=== PATIENT | female | born 1930 | race Caucasian/White ===

== ENCOUNTER 2016-07-05 16:42 | Inpatient (IN) | payer MEDICARE, OTHER ==
[~2016-07-05] VITALS: Ht 165.1 cm; Wt 56.5 kg
[2016-07-05] MEDS ORDERED: SODIUM CHLORIDE 0.9% 1,000 ML ONE (20:44)
[2016-07-05] MEDS ORDERED: SALINE FLUSH 10 ML FLUSH PRN (21:25)
[2016-07-05] MEDS ORDERED: BISACODYL EC 5 MG TAB PO PRN (21:25)
[2016-07-05] MEDS ORDERED: MAG HYDROX 30 ML UDC PO PRN (21:25)
[2016-07-05] MEDS ORDERED: BISACODYL 10 MG SUPP RECTAL PRN (21:25)
[2016-07-05] MEDS ORDERED: ONDANSETRON 4 MG VIAL IV PRN (21:25)
[2016-07-05] MEDS ORDERED: ALU/MAG/SIM 30 ML UDC PO PRN (21:25)
[2016-07-05 22:27] VITALS: BP_SYST 100; BP_SYST 110; TEMP 96.7
[2016-07-05] MEDS ORDERED: Flu Vaccine Quadrivalent 60 MCG/0.5 ML IM.VACC ONE (22:30)
[2016-07-05] MEDS: SODIUM CHLORIDE 0.9% 1,000 ML IV SCH (23:13)
[2016-07-05] MEDS: GABAPENTIN 100 MG CAP PO SCH (23:56)
[2016-07-05] MEDS: METOPROLOL TART 25 MG TAB PO SCH (23:56)
[2016-07-06] VITALS (7 sets, daily range): BP systolic 100–122; RESP 16–18; TEMP 97.3–98.3; Ht 165.1 cm; Wt 56.5 kg
[2016-07-06] MEDS: SODIUM CHLORIDE 0.9% FLUSH BAG 500 ML IV SCH (00:12)
[2016-07-06] MEDS: SALINE FLUSH 10 ML FLUSH SCH ×2 (07:41→20:00)
[2016-07-06] MEDS: METOPROLOL TART 25 MG TAB PO SCH (07:53)
[2016-07-06] MEDS: ASPIRIN EC 81 MG TAB PO SCH (07:53)
[2016-07-06] MEDS: GABAPENTIN 100 MG CAP PO SCH ×3 (07:53→21:48)
[2016-07-06] MEDS ORDERED: FEBUXOSTAT 40 MG TAB PO SCH (09:00)
[2016-07-06] MEDS: SODIUM CHLORIDE 0.9% 1,000 ML IV SCH (11:07)
[2016-07-06] MEDS ORDERED: CETIRIZINE 10 MG TAB PO SCH (17:00)
[2016-07-06] MEDS ORDERED: PRAVASTATIN 40 MG TAB PO SCH (18:25)
[2016-07-06] MEDS ORDERED: NON-FORMULARY MEDICATION (Melatonin 3 MG) PO SCH (21:00)
[2016-07-06] MEDS: SERTRALINE 50 MG TAB PO SCH (21:44)
[2016-07-06] MEDS: KCL CR 10 MEQ TAB PO SCH (21:48)
[2016-07-06] MEDS ORDERED: MISSING DOSE XX ONE (22:10)
[2016-07-06] MEDS: PRAVASTATIN 40 MG TAB PO SCH (23:00)
[2016-07-07] VITALS (7 sets, daily range): BP systolic 118–164; RESP 16–18; TEMP 96.3–98.6
[2016-07-07] MEDS: SODIUM CHLORIDE 0.9% FLUSH BAG 500 ML IV SCH (06:00)
[2016-07-07] MEDS: SALINE FLUSH 10 ML FLUSH SCH ×2 (08:00→23:12)
[2016-07-07] MEDS: ASPIRIN EC 81 MG TAB PO SCH (09:17)
[2016-07-07] MEDS: CHOLECALCIFEROL 1,000 UNITS TAB PO SCH (09:17)
[2016-07-07] MEDS: GABAPENTIN 100 MG CAP PO SCH ×3 (09:17→23:14)
[2016-07-07] MEDS: KCL CR 10 MEQ TAB PO SCH ×2 (09:17→21:00)
[2016-07-07] MEDS: SERTRALINE 50 MG TAB PO SCH (09:18)
[2016-07-07] MEDS: SODIUM CHLORIDE 0.9% 1,000 ML IV SCH (09:23)
[2016-07-07] MEDS ORDERED: MISSING DOSE XX ONE (16:40)
[2016-07-07] MEDS: VALACYCLOVIR 500 MG TAB PO SCH ×2 (17:26→23:13)
[2016-07-07] MEDS: PRAVASTATIN 40 MG TAB PO SCH (23:24)
[2016-07-08 05:28] VITALS: BP_SYST 116; RESP 18; TEMP 97.9
[2016-07-08] MEDS: SODIUM CHLORIDE 0.9% FLUSH BAG 500 ML IV SCH (06:34)
[2016-07-08] MEDS: SALINE FLUSH 10 ML FLUSH SCH ×2 (08:00→20:00)
[2016-07-08] MEDS ORDERED: MISSING DOSE XX ONE (08:00)
[2016-07-08 08:16] VITALS: BP_SYST 146; RESP 18; TEMP 97.9
[2016-07-08] MEDS: ASPIRIN EC 81 MG TAB PO SCH (09:19)
[2016-07-08] MEDS: CHOLECALCIFEROL 1,000 UNITS TAB PO SCH (09:20)
[2016-07-08] MEDS: KCL CR 10 MEQ TAB PO SCH ×2 (09:21→20:46)
[2016-07-08] MEDS: SERTRALINE 50 MG TAB PO SCH (09:21)
[2016-07-08] MEDS: GABAPENTIN 100 MG CAP PO SCH ×3 (09:21→20:46)
[2016-07-08] MEDS: VALACYCLOVIR 500 MG TAB PO SCH ×3 (09:21→20:46)
[2016-07-08 11:00] VITALS: BP_SYST 122; RESP 18; TEMP 97.7
[2016-07-08] MEDS: DOCUSATE SOD 100 MG CAP PO SCH ×2 (11:20→20:45)
[2016-07-08 17:19] VITALS: BP_SYST 102; RESP 18; TEMP 97.3
[2016-07-08 19:20] VITALS: BP_SYST 122; RESP 19; TEMP 98.4
[2016-07-08] MEDS: EZETIMIBE 10 MG TAB PO SCH (20:47)
[2016-07-08 23:59] VITALS: BP_SYST 120; RESP 18
[2016-07-09 03:30] VITALS: BP_SYST 128; RESP 18; TEMP 98.5
[2016-07-09] MEDS: SODIUM CHLORIDE 0.9% FLUSH BAG 500 ML IV SCH ×2 (05:41→21:28)
[2016-07-09 07:52] VITALS: BP_SYST 122; RESP 18; TEMP 98.7
[2016-07-09] MEDS: SALINE FLUSH 10 ML FLUSH SCH ×2 (08:00→20:00)
[2016-07-09] MEDS: CHOLECALCIFEROL 1,000 UNITS TAB PO SCH (08:26)
[2016-07-09] MEDS: ASPIRIN EC 81 MG TAB PO SCH (08:26)
[2016-07-09] MEDS: DOCUSATE SOD 100 MG CAP PO SCH (08:26)
[2016-07-09] MEDS: KCL CR 10 MEQ TAB PO SCH ×2 (08:26→21:21)
[2016-07-09] MEDS: VALACYCLOVIR 500 MG TAB PO SCH ×3 (08:27→21:21)
[2016-07-09] MEDS: GABAPENTIN 100 MG CAP PO SCH ×3 (09:00→21:21)
[2016-07-09] MEDS ORDERED: MISSING DOSE XX ONE (09:40)
[2016-07-09] MEDS: SERTRALINE 50 MG TAB PO SCH (10:08)
[2016-07-09 12:54] VITALS: BP_SYST 128; RESP 18; TEMP 98.8
[2016-07-09 17:32] VITALS: BP_SYST 120; RESP 18
[2016-07-09 20:53] VITALS: BP_SYST 118; RESP 18; TEMP 98.5
[2016-07-09] MEDS: EZETIMIBE 10 MG TAB PO SCH (21:21)
[2016-07-09 23:57] VITALS: BP_SYST 120; RESP 18; TEMP 98.5
[2016-07-10 03:30] VITALS: BP_SYST 118; RESP 18; TEMP 98.7
[2016-07-10 08:35] VITALS: BP_SYST 124; RESP 20; TEMP 98.5
[2016-07-10] MEDS: ASPIRIN EC 81 MG TAB PO SCH (09:21)
[2016-07-10] MEDS: SALINE FLUSH 10 ML FLUSH SCH ×2 (09:21→20:00)
[2016-07-10] MEDS: GABAPENTIN 100 MG CAP PO SCH ×3 (09:21→21:11)
[2016-07-10] MEDS: CHOLECALCIFEROL 1,000 UNITS TAB PO SCH (09:22)
[2016-07-10] MEDS: SERTRALINE 50 MG TAB PO SCH (09:22)
[2016-07-10] MEDS: KCL CR 10 MEQ TAB PO SCH ×2 (09:22→21:12)
[2016-07-10] MEDS: VALACYCLOVIR 500 MG TAB PO SCH ×3 (09:22→21:12)
[2016-07-10] MEDS: CEPHALEXIN 500 MG CAP PO SCH ×2 (09:22→21:12)
[2016-07-10 12:09] VITALS: BP_SYST 132; RESP 18; TEMP 97.8
[2016-07-10 16:23] VITALS: BP_SYST 136; RESP 18
[2016-07-10 19:55] VITALS: BP_SYST 130; RESP 16; TEMP 97.8
[2016-07-10] MEDS: EZETIMIBE 10 MG TAB PO SCH (21:11)
[2016-07-11 00:14] VITALS: BP_SYST 126; RESP 16
[2016-07-11 02:41] VITALS: BP_SYST 130; TEMP 97.3
[2016-07-11] MEDS: SODIUM CHLORIDE 0.9% FLUSH BAG 500 ML IV SCH (05:11)
[2016-07-11] MEDS: SALINE FLUSH 10 ML FLUSH SCH (08:00)
[2016-07-11] MEDS: CEPHALEXIN 500 MG CAP PO SCH (08:54)
[2016-07-11] MEDS: GABAPENTIN 100 MG CAP PO SCH (08:55)
[2016-07-11] MEDS: VALACYCLOVIR 500 MG TAB PO SCH (08:55)
[2016-07-11] MEDS: ASPIRIN EC 81 MG TAB PO SCH (08:55)
[2016-07-11] MEDS: SERTRALINE 50 MG TAB PO SCH (08:55)
[2016-07-11] MEDS: CHOLECALCIFEROL 1,000 UNITS TAB PO SCH (08:55)
[2016-07-11] MEDS: KCL CR 10 MEQ TAB PO SCH (08:55)
[2016-07-11 09:44] VITALS: BP_SYST 124; RESP 18; TEMP 97.8
[2016-07-11 10:38] VITALS: BP_SYST 124; RESP 18; TEMP 97.8
== END 2016-07-11 13:38 | disposition home health service (06) | DRG 596 ==
LOC: ENRESERVTM → ENRESERVDT → ER 16:42 → EMR 19:37 → 4THE 22:01 → OBSVTOIN 07-06 12:36 → ENPENDDIS 07-06 12:36 → PCU2 07-06 15:40
PROVIDERS: ADMIT Hospitalist; ATTEND Hospitalist
DX: B02.9 Zoster without complications (principal); E86.0 Dehydration; K76.0 Fatty (change of) liver, not elsewhere classified; I65.29 Occlusion and stenosis of unspecified carotid artery; R74.0 Nonspecific elevation of levels of transaminase and lactic acid dehydrogenase [LDH]; M10.9 Gout, unspecified; I10 Essential (primary) hypertension; E78.5 Hyperlipidemia, unspecified; I25.10 Atherosclerotic heart disease of native coronary artery without angina pectoris; K21.9 Gastro-esophageal reflux disease without esophagitis; Z79.82 Long term (current) use of aspirin; R53.1 Weakness; T42.6X5A Adverse effect of other antiepileptic and sedative-hypnotic drugs, initial encounter
CPT/HCPCS: 36415; 70450; 71010; 76705; 80048; 80053; 80061; 80074; 81003; 82140; 82553; 82607; 82746; 82947; 83605; 84484; 85025; 86780; 87040; 87045; 87046; 87088; 87493; 93005; 93306; 94799; 99219; 99233; 99238